=== PATIENT | female | born 1970 | race Hispanic/Latino ===

== ENCOUNTER 2020-03-20 14:17 | Emergency (ER) | payer BC, OTHER, SELFPAY ==
[2020-03-21 12:12] LABS: SARS-CoV-2 MS2 Positive; SARS-CoV-2 N Gene Positive; SARS-CoV-2 S Gene Positive; SARS-CoV-2 by NAA DETECTED (NotDetected); SARS-CoV-2 orf1ab Positive
== END 2020-03-20 15:45 | disposition home or self-care (01) ==
LOC: ERS 14:17
DX: U07.1 COVID-19 (principal); E10.9 Type 1 diabetes mellitus without complications; I10 Essential (primary) hypertension; F41.9 Anxiety disorder, unspecified
CPT/HCPCS: 87635; 99284; U0003

== ENCOUNTER 2020-04-06 12:55 | Emergency (ER) | payer OTHER, SELFPAY ==
[2020-04-06 22:49] LABS: SARS-CoV-2 MS2 Positive; SARS-CoV-2 N Gene Positive; SARS-CoV-2 S Gene Negative; SARS-CoV-2 by NAA DETECTED (NotDetected); SARS-CoV-2 orf1ab Positive
== END 2020-04-06 13:45 | disposition home or self-care (01) ==
LOC: ERS 12:55
DX: U07.1 COVID-19 (principal); E10.9 Type 1 diabetes mellitus without complications; I10 Essential (primary) hypertension; F41.9 Anxiety disorder, unspecified
CPT/HCPCS: 87635; 99283; U0003

== ENCOUNTER 2020-08-26 02:13 | Emergency (ER) | payer BC, SELFPAY | END 2020-08-26 03:15 | disposition home or self-care (01) | LOC: ERS 02:13 | DX: F10.129 Alcohol abuse with intoxication, unspecified (principal); E10.9 Type 1 diabetes mellitus without complications; I10 Essential (primary) hypertension | CPT/HCPCS: 99284 ==

== ENCOUNTER 2021-12-31 08:43 | Outpatient (CLI) | payer BC | END 2021-12-31 08:44 | disposition home or self-care (01) | LOC: BICMAMMO 08:43 | PROVIDERS: ATTEND Physician Assistant | DX: Z12.31 Encounter for screening mammogram for malignant neoplasm of breast (principal) | CPT/HCPCS: 77063; 77067 ==